=== PATIENT | female | born 1995 | race African-American/Black ===

== ENCOUNTER 2021-07-17 19:29 | Emergency (ER) | payer OTHER ==
[~2021-07-17] VITALS: Ht 175.3 cm; Wt 51.3 kg
[2021-07-17 20:00] VITALS: BP 118/81
[2021-07-17] MEDS ORDERED: TDAP [DIPH/PERTUSSIS/TET] 0.5 ML VIAL IM ONE (20:35)
[2021-07-17] MEDS ORDERED: IBUP-1955 PO (21:07)
[2021-07-17] MEDS: TDAP [DIPH/PERTUSSIS/TET] 0.5 ML VIAL IM ONE (21:26)
--- NOTE | 2021-07-17 21:29 | NUR ---
Patient discharged to home in stable condition. Written and verbal after care instructions given. Patient verbalizes understanding of instruction. Pt ambulatory with a steady gait
== END 2021-07-17 21:48 | disposition home or self-care (01) ==
LOC: ER 19:31
DX: S61.216A Laceration without foreign body of right little finger without damage to nail, initial encounter (principal); W26.9XXA Contact with unspecified sharp object(s), initial encounter; Y93.89 Activity, other specified; Y92.89 Other specified places as the place of occurrence of the external cause; Y99.8 Other external cause status
CPT/HCPCS: 12001; 90471; 90715; 99283; A6403